=== PATIENT | female | born 1945 | race Caucasian/White ===

== ENCOUNTER → 2016-10-07 | Outpatient (CLI) | payer MEDICARE, OTHER ==
[~2016-10-07] MED LIST: ASPIRIN EC81 MG PO; DIOVAN320 MG PO; ELAVIL25 MG PO; EXCEDRIN MIGRA1 EACH PO; FIBERCON1 TAB PO; FISH OIL1000 MG PO; FLEXERIL10 MG PO; K-TAB 10MEQ10 MEQ PO; LEVOTHROID (SY88 MCG PO; MILK THISTLE PO; TRIAMTERENE-HC1 EACH PO; TYLENOL ARTHRI650 MG PO; VITAMIN D1000 UNIT PO; ZOCOR40 MG PO; ZYLOPRIM100 MG PO
== END | disposition disaster alternative care site (69) ==
LOC: LGSMG 15:15
DX: N18.3 Chronic kidney disease, stage 3 (moderate) (principal)

== ENCOUNTER → 2016-10-23 | Outpatient (CLI) | payer MEDICARE, OTHER | END | disposition disaster alternative care site (69) | LOC: GRAD 11:59 | DX: N18.3 Chronic kidney disease, stage 3 (moderate) (principal); N28.1 Cyst of kidney, acquired ==

== ENCOUNTER → 2016-10-23 | Outpatient (CLI) | payer MEDICARE, OTHER | END | disposition disaster alternative care site (69) | LOC: LGSMG 13:31 | DX: N18.3 Chronic kidney disease, stage 3 (moderate) (principal) ==

== ENCOUNTER → 2016-11-07 | Outpatient (CLI) | payer MEDICARE, OTHER | LOC: LGSMG 14:35 | DX: D63.8 Anemia in other chronic diseases classified elsewhere (principal) ==